=== PATIENT | male | born 1950 | race Caucasian/White ===

== ENCOUNTER 2018-12-23 13:32 | Emergency (ER) | payer MEDICARE, OTHER ==
[2018-12-23] MEDS ORDERED: Ketorolac Tromethamine 30 MG/ML VIAL ONE (14:33)
--- NOTE | 2018-12-23 15:04 | RAD ---
RIGHT HIP TWO VIEWS: HISTORY: Hip pain. FINDINGS: Mild degenerative change noted with minimal spurring from the femoral head. No fracture or acute abno rmality identified. POS: [facility]
--- NOTE | 2018-12-23 15:05 | RAD ---
AP PELVIS: HISTORY: Right hip pain. FINDINGS: The pelvis appears intact. Mild degenerative change at both hips. No acute abnormality. IMPRESSION: Mild symmetric degenerative change at both hips. POS: [facility]
--- NOTE | 2018-12-23 15:31 | CT ---
CT of pelvis noncontrast CLINICAL HISTORY: Right hip pain. Patient denies injury. Reference is made to preceding radiographs FINDINGS: Mild bilateral hip joint osteoarthritis is present, without fracture or dislocation. Additi onal degenerative change of the pelvic osseous structures is present, as well as involving facet joints of the imaged lower lumbar spine. Evidence of anastomotic suture of unopacified bowel of the p jayden. There is vascular disease. Lobulated morphology of the moderately distended unopacified urinary bladder is incidentally noted. IMPRESSION: No acute osseous abnormality of the pelvis. Transcribed Date/Time: 12/23/2018 4:32 PM
--- NOTE | 2018-12-23 15:32 | CT ---
Exam: Lumbar spine CT without contrast HISTORY: Right hip pain. Comparison: None FINDINGS: Atelectasis in the visualized lung bases No retroperitoneal mass, lymphadenopathy or hematoma. Limited evaluation of the solid organs. Grossly no solid organ abnormality. Exophytic hypodensity shannan nating from the upper pole the left kidney evaluated. Atherosclerosis of a nonaneurysmal aorta Unremarkable urinary bladder. Evidence of previous surgery involving the sigmoid colon. Five lumbar vertebrae. Lumbar spine vertebral body height is maintained. No fracture. No spondyloli sthesis. No spondylolysis. Limited evaluation the contents of the central spinal canal and neural foramina due to technique Sacral ala are preserved. Sacral neural foramina are intact. Symmetric sacroiliac joint spaces. T11-T12 and T12-L1: No significant central canal stenosis or significant neural foraminal narrowing L1-L2: No significant central canal stenosis or significant neural foraminal narrowing L2-L3: Broad-based disc bulge, mild ligament flavum thickening and facet hypertrophy result in mild s tenosis. Bilaterally, the neural foramina are patent L3-L4: Broad-based disc bulge, mild ligament flavum thickening and facet hypertrophy result in mild c entral canal stenosis. Bilaterally, neural foramina are patent. L4-L5: Broad-based disc bulge, ligament flavum thickening and facet result in moderate to severe cent ral canal stenosis. Mild bilateral neural foraminal narrowing. L5-S1: Broad-based disc bulge does not cause any significant mass effect upon the thecal sac. Disc ma terial encroaches upon bilateral subarticular zones, left greater than right. There may be some mass effect upon bilateral traversing S1 nerve roots. Mild to moderate right and moderate left neural foraminal narrowing. IMPRESSION: 1. No evidence of fracture 2. Moderate to severe central canal stenosis at L4-L5. 3. Moderate left neural foraminal narrowing at L5-S1. Transcribed Date/Time: 12/23/2018 4:40 PM
== END 2018-12-23 15:52 | disposition home or self-care (01) ==
LOC: ERS 13:32
DX: M25.551 Pain in right hip (principal); F17.210 Nicotine dependence, cigarettes, uncomplicated; Z71.6 Tobacco abuse counseling
CPT/HCPCS: 72131; 72170; 72192; 96372; 99406; J1885

== ENCOUNTER 2020-02-06 18:13 | Emergency (ER) | payer MEDICARE | END 2020-02-06 19:45 | disposition left against medical advice (07) | LOC: ERS 18:13 | DX: Z53.21 Procedure and treatment not carried out due to patient leaving prior to being seen by health care provider (principal) ==